=== PATIENT | female | born 1960 | race Caucasian/White ===

== ENCOUNTER 2017-05-23 09:44 | Outpatient (CLI) | payer MEDICAID | END 2017-05-23 12:06 | LOC: D.MAMMO 09:44 | DX: Z12.31 Encounter for screening mammogram for malignant neoplasm of breast (principal) ==

== ENCOUNTER → 2019-03-13 13:39 | Outpatient (CLI) | payer BC ==
[2019-03-13 15:44] LABS: BASOPHILS 0.3 % (0-2); EOSINOPHILS 2.1 % (0-7); HEMATOCRIT 38.7 % (36.0-48.0); HEMOGLOBIN 12.8 g/dL (12-16); IMMATURE GRANULOCYTES 0.1 % (0-5); LYMPHOCYTES 47.1 % (15-50); MCH 30.3 pg (26.0-34.0); MCHC 33.1 g/dL (31.0-37.0); MCV 91.5 fL (80.0-100.0); MEAN PLATELET VOLUME 9.6 fL (7.4-10.4); MONOCYTES 11.1 % (2-11); NEUTROPHILS 39.3 % (40-80); PLATELET COUNT 238 10x3/uL (130-400); RBC 4.23 10x6/uL (4.00-5.40); RDW 13.2 % (11.5-14.5); WBC 6.7 10x3/uL (4.8-10.8)
== END | disposition home or self-care (01) ==
LOC: D.RT 13:39
PROVIDERS: ATTEND Internal Medicine Pulmonary Disease
DX: J45.909 Unspecified asthma, uncomplicated (principal); R06.02 Shortness of breath

== ENCOUNTER 2020-07-16 16:00 | Outpatient (CLI) | payer BC | END 2020-07-16 23:59 | disposition home or self-care (01) | LOC: D.MAMMO 16:00 | PROVIDERS: ATTEND Nurse Practitioner Family | DX: Z12.31 Encounter for screening mammogram for malignant neoplasm of breast (principal) ==